=== PATIENT | female | born 1955 | race Two or more races ===

== ENCOUNTER 2024-01-30 13:48 | Emergency (ER) | payer OTHER ==
[~2024-01-30] VITALS: Ht 160 cm; Wt 49.9 kg
[2024-01-30] MEDS ORDERED: ROSUVASTATIN CAL5 MG (13:52)
[2024-01-30 15:26] LABS: HEMATOCRIT 38.3 % (36.0-45.00); HEMOGLOBIN 12.9 g/dL (12.0-15.00); MEAN CELL VOLUME 90.8 fL (80.00-100.00); MEAN CORPUSCULAR HEMOGLOBIN 30.5 pg (27.00-32.0); MEAN CORPUSCULAR HGB CONC 33.6 g/dl (32.0-36.0); PLATELET COUNT 289 K/uL (150-450); RED BLOOD COUNT 4.21 M/uL (4.00-6.00); RED CELL DISTRIBUTION WIDTH 13.4 % (11.5-14.5)
[2024-01-30 15:35] LABS: URINE APPEARANCE Clear; URINE BILIRRUBIN Negative (NEGATIVE); URINE BLOOD Negative; URINE COLOR Yellow; URINE GLUCOSE Negative (NEGATIVE); URINE KETONE Trace (NEGATIVE); URINE LEUKOCYTE Small; URINE NITRATE Positive; URINE PROTEIN Negative (NEGATIVE)
[2024-01-30 15:38] LABS: URINE EPITHELIAL CELLS 9.5 uL (0.0-38.8); URINE RBC 4.7 uL (0.0-20.8); URINE WBC 119.4 uL (0.0-23.2)
[2024-01-30 15:41] LABS: ALBUMIN 3.5 gm/dL (3.4-5.0); BILIRUBIN TOTAL 0.41 mg/dL (0.3-1.2); CALCIUM 9.4 mg/dL (8.5-10.1); CREATININE SERUM 0.79 mg/dL (0.55-1.02); GFR 72.37; GLOBULINA 4.5 G/DL (2.4-3.5); POTASSIUM 4.38 mEq/L (3.5-5.1)
[2024-01-30 15:56] LABS: URINE BACTERIA > 9821.5 uL (0.0-1933)
[2024-01-30] MEDS ORDERED: GABAPENTIN300 M2 BC (15:58)
[2024-01-30] MEDS ORDERED: HORIZANT300 MG PO (16:01)
[2024-01-30] MEDS ORDERED: TORADOL60 MG PO (16:03)
== END 2024-01-30 16:18 | disposition home or self-care (01) ==
LOC: ER 13:50
DX: B02.8 Zoster with other complications (principal)